=== PATIENT | male | born 1955 | race Caucasian/White ===

== ENCOUNTER 2018-07-25 00:21 | Inpatient (IN) | payer OTHER, SELFPAY ==
[2018-07-25] VITALS (27 sets, daily range): BP systolic 64–140; BP diastolic 30–66; PULSE 90–119; RESP 15–29; TEMP 36.7–38.5; O2SAT 92–97; BMI 41.1; BMI 41.0
--- NOTE | 2018-07-25 00:37 | EKG12_ITS ---
Test Reason : SOB Blood Pressure : / mmHG Vent. Rate : 108 BPM Atrial Rate : 108 BPM P-R Int : 162 ms QRS Dur : 094 ms QT Int : 330 ms P-R-T Axes : 008 055 031 degrees QTc Int : 442 ms Sinus tachycardia Otherwise normal ECG Confirmed by DEXTER MATHEW ([id number]), commissioning editor CARMEN JEROME ([id number] on 07/28/2018 8:34:13 AM Referred By: Guido Vázquez Confirmed By:DEXTER MATHEW
--- NOTE | 2018-07-25 00:37 | RAD_ITS ---
STUDY: X-RAY CHEST REASON FOR EXAM: Male, 62 years old. Shortness of breath TECHNIQUE: PA and lateral COMPARISON: None. FINDINGS: There is a LEFT perihilar mass measuring 7.3 cm. Malignancy cannot be excluded. Lungs otherwise expanded and clear. There is NO pleural effusion or pneumothorax. Normal size heart. Normal mediastinum and hannah. Normal visualized pulmonary arteries. Normal visualized aortic arch and descending thoracic aorta. Normal visualized thoracic spine. Normal visualized ribs, clavicles, and shoulders. There is no demonstrated abnormality of the visualized soft tissue structures of the upper abdomen. RAD/Chest PA and Lateral IMPRESSION: There is a LEFT perihilar mass measuring 7.3 cm. Malignancy cannot be excluded. Lungs otherwise expanded and clear. There is NO pleural effusion or pneumothorax. Normal size heart. Electronically Signed: Dudley Duong MD at 2:15 EDT , Service support ,
--- NOTE | 2018-07-25 00:42 | ED.DCSUM_ITS ---
- ER Visit Summary Date of Service: 07/25/18 Chief Complaint: Cough, shortness of breath, left-sided chest pain History of Present Illness: The patient is a 62 M presents to the emergency department multiple complaints. Patient states that he felt like he had an upper respiratory infection for about 2 and half weeks. He states he had some nasal drainage, scant cough, and some myalgias. He states that he felt better, but over the past few days he is actually is getting worse. He is begun to have a lot of pain in the left side of his chest, especially with laying on it. He feels like he cannot breathe at times. He has had persistent cough without any productive sputum. Patient does have a history of smoking, but is never been diagnosed with COPD. The pain is not exertional. It is only with palpation. He does admit to some chills and sweats. He has not been on any recent antibiotics. He denies any recent travel. He does have history of diabetes, but no known history of coronary vascular disease. Physical Examination: Vital signs reviewed General: Well-nourished, well-developed Head: Normocephalic, atraumatic Eyes: Pupils equal and reactive, extraocular muscles intact Neck, supple, no lymphadenopathy Heart: Regular rate and rhythm Respiratory: No distress, wheezing in all lung vora, focal rhonchi in the left base Abdomen: Soft, nontender, nondistended, no peritoneal signs Back: Nontender Extremities: Nontender, no edema, no cords Skin: Normal color no rash Neuro: Alert and oriented, no focal or lateralizing deficits Test Results: [] Emergency Department Course and Treatment: The patient presents to the emergency department left-sided chest pain, cough, shortness of breath. IV was established. Initially, his blood pressure was on the lower end of normal at 98/60. He maintained maps greater than 65. He was given IV fluids and labs were obtained. The patient does have a leukocytosis. Lactate is also mildly elevated at 2.3. X-ray shows a rounded opacity there was concern for lung abscess versus malignancy. Patient was sent for CT of his chest. This does demonstrate pneumonia, with no evidence of mass or abscess. He was started on broad-spectrum antibiotics. The patient was discussed with the hospitalist and will be admitted. Treatment Plan: [] Disposition: Admission Impression: 1. Community-acquired pneumonia 2. Sepsis This note was generated with [employer] dictation software. It may contain incorrect words, spelling, and punctuation that were not noted in review of the chart prior to signing ED Disposition - Plan for ED Patient: Chief Complaint: Cold Sx Referrals: NOT,DEFINED [NON-STAFF] -
[2018-07-25] MEDS: Ipratropium/Albuterol Sulfate 3 ML AMPUL.NEB INHALATION ×6 (00:51→22:37)
[2018-07-25] MEDS: 0.9% Normal Saline 1,000 ML 1000 ML IV (00:51)
[2018-07-25] MEDS: Acetaminophen 500 MG Tablet 1000 MG PO (00:51)
--- NOTE | 2018-07-25 01:02 | ED.RN ---
no old ekgs
[2018-07-25 01:07] LABS: Absolute Neutrophil Count 14.6 X10^3/uL (2.0-7.7); Basophil# 0.01 X10^3/uL; Basophil% 0.1 % (0-1); Hematocrit 32.9 % (40-54); Hemoglobin 10.1 g/dl (13.0-16.5); Lymphocyte % 11.1 % (19-41); Mean Corp Hgb Conc 30.7 g/gl (32-36); Mean Corpuscular Hgb 25.6 pg (27.0-32.0); Mean Corpuscular Volume 83.3 fL (80-94); Mean Platelet Vol. 9.7 fl (6.2-12.0); Monocyte# 2.15 X10^3/uL; Monocyte% 11.4 % (0-10); Neutrophil # 14.59 X10^3/uL (2.7-7.7); Neutrophil % 77.1 % (47-70); Platelet Count 221 K/mm3 (150-450); RBC Distribution Width CV 15.5 % (11.6-14.6); RBC Distribution Width SD 47.6 fl (35.1-43.9); Red Blood Count 3.95 M/mm3 (4.6-6.2); White Blood Count 18.9 K/mm3 (4.4-11.0)
[2018-07-25 01:29] LABS: POSITIVE COUNT NO; POSITIVE DIFFERENTIAL YES; POSITIVE MORPHOLOGY YES
[2018-07-25 01:30] LABS: Differential Comment SCANNED; Differential Indicated SCAN CRITERIA MET
[2018-07-25 01:33] LABS: ALB/GLOB Ratio 0.9 RATIO (0.9-2.4); AST(SGOT) 11 U/L (15-37); Alanine Aminotransfer ALT/SGPT 19 U/L (16-61); Albumin, Serum 3.5 g/dL (3.2-5.0); Alkaline Phosphatase 62 U/L (45-117); Anion Gap 9 (5-15); BUN 27 mg/dL (7-18); BUN/Creat Ratio 18.8 RATIO (10-20); Calcium,Total 8.3 mg/dL (8.5-10.1); Chloride 99 mmol/L (98-107); Creatinine, Serum 1.44 mg/dL (0.70-1.30); EST Glomerular Filtration Rate 53 mL/min (>60); Est Glom Filt Rate - Afr Amer 64 mL/min (>60); Globulin 3.8 g/dL (2.2-4.2); Glucose 114 mg/dL (74-106); Potassium 3.8 mmol/L (3.5-5.1); Protein, Total 7.3 g/dL (6.4-8.2); Sodium Level 132 mmol/L (136-145)
[2018-07-25 01:36] LABS: Lactic Acid 2.3 mmol/L (0.4-2.0)
--- NOTE | 2018-07-25 01:37 | CT_ITS ---
STUDY: CT CHEST WITH CONTRAST REASON FOR EXAM: Male, 62 years old. COUGH,SOB,LT SIDED CHEST PAIN X COUPLE DAYS,? ABN XRAY,ELEVATED WBC HX:DIABETES,HTN RADIATION DOSAGE (If Supplied By Facility): CTDIvol = ( 16.73 ) mGy, DLP = ( 761.88 ) mGycm TECHNIQUE: Transaxial imaging was performed following intravenous administration of 100ML ml of Isovue 300 contrast material. Individualized dose optimization techniques were used for this CT. COMPARISON: None. FINDINGS: There is ill-defined round opacity in the left lung upper lobe and lingula most likely represent pneumonia. There is no demonstrated pleural abnormality. Normal heart and pericardium. Normal mediastinum. Normal hilar regions. Normal enhanced pulmonary arteries. Normal aorta arch and descending thoracic aorta. Normal osseous structures. There is a left renal cyst measures [address]/Chest WITH Contrast IMPRESSION: Left upper lobe and lingula pneumonia. Follow-up to ensure resolution is recommended. Electronically Signed: Jessica Brown MD at 2:50 EDT Tel , Service support ,
--- NOTE | 2018-07-25 01:41 | ED.RN ---
lab called with critical lab results. Lactic acid 2.3. Dr. Arreguin made aware. no new orders at this time
[2018-07-25] MEDS: 0.9% Normal Saline 1,000 ML 999 ML IV ×3 (02:24→11:42)
--- NOTE | 2018-07-25 03:06 | PCM.HP.STD ---
Problem List (1) Severe sepsis Status: Acute (2) CAP (community acquired pneumonia) Status: Acute Qualifiers: Laterality: left (3) Acute respiratory failure with hypoxia Status: Acute (4) LIZA (acute kidney injury) Status: Acute (5) Morbid obesity Status: Chronic (6) HTN (hypertension) Status: Chronic Qualifiers: Hypertension type: essential hypertension Qualified Code(s): I10 - Essential (primary) hypertension (7) HLD (hyperlipidemia) Status: Chronic Qualifiers: Hyperlipidemia type: unspecified Qualified Code(s): E78.5 - Hyperlipidemia, unspecified (8) GERD (gastroesophageal reflux disease) Status: Chronic Qualifiers: Esophagitis presence: esophagitis presence not specified Qualified Code(s): K21.9 - Gastro-esophageal reflux disease without esophagitis (9) Diabetes mellitus, type II Status: Chronic Qualifiers: Diabetes mellitus petroleum terminal plant operator insulin use: without petroleum terminal plant operator use Diabetes mellitus complication status: with unspecified complications Qualified Code(s): E11.8 - Type 2 diabetes mellitus with unspecified complications History of Present Illness Date of Admission: 07/25/18 Chief Complaint: URI sxs, cough, pleuritic chest pain The patient is a 62 y/o M w/ PMHx: Morbid Obesity, Tobacco use, HTN, HLD, GERD who presents to the [facility] ED on 07/25/18 with URI symptoms x 2.5 weeks which initially improved but then worsened over the last 2-3 days w/ onset fevers, chills, productive cough and notable L sided discomfort, worse with palpitation to the region and with deep respiratory efforts. In the ED work-up included T 98, heart rate 119, BP 91/56, respiratory rate 20, 99% on room air--> heart rate 103, BP 85/64, respiratory rate 29, 90% on room air, CBC with WBC 18.9, hemoglobin 10.1, platelet 221 with left shift, CMP with sodium 132, BUN/creatinine 27/1.44, glucose 114, lactic acid 2.3, troponin < 0.015, chest x-ray with left perihilar mass measuring 7.3 cm, CT chest follow-up with left upper lobe and lingula pneumonia. In the ED patient administered normal saline, DuoNeb, Tylenol, Rocephin and azithromycin. Past Medical History Past Medical History (Chronic Problems): Chronic Problems Morbid obesity (Chronic) HTN (hypertension) (Chronic) HLD (hyperlipidemia) (Chronic) GERD (gastroesophageal reflux disease) (Chronic) Diabetes mellitus, type II (Chronic) Allergies No Known Allergies Allergy (Verified 07/25/18 00:25) Home Medications: Ambulatory Orders Medication Instructions Recorded Lansoprazole [Prevacid] 1 tab PO DAILY 07/25/18 Lisinopril [Zestril] 1 tab PO DAILY 07/25/18 Simvastatin 40 mg PO DAILY 07/25/18 Surgical History: - - Right arm surgery on the elbow. Psychiatric History: No pertinent psych hx Lives: Spouse/ Significant Other Smoking Status: Current every day smoker - Notes approximately 2 cigars daily. Tobacco Use: Cigars Alcohol: None Drugs: None - *Family History Maternal History Items: Hypertension Paternal History Items: Heart Disease - Father with history of heart disease, [place]. Review of Systems Constitutional: Reports: Anorexia, Chills, Fever, Malaise, Weakness, Fatigue. Denies: Weight Change HEENT: Denies: Head Aches, Sinus Congestion, Sinus Drainage Cardiovascular: Reports: Chest Pain. Denies: Palpitations Respiratory: Reports: Cough, Pleuritic Pain, Shortness of Breath, Shortness of breath at rest, Shortness of breath upon exertion, Sputum production Gastrointestinal: Denies: Abdominal Pain, Nausea, Vomiting Genitourinary: Denies: Dysuria Musculoskeletal: Denies: Joint Pain, Joint Tenderness Skin: Denies: Rash, Wounds Neurological: Denies: Numbness, Tingling, Focal weakness Psychiatric: Denies: Anxiety, Depression, Homicidal Ideations, Suicidal Ideations Hematologic/ Lymphatic: Reports: Anemia. Denies: Easy Bruising, Easy Bleeding VTE Information - Inpt Only VTE Present on Admission: No VTE Mechan Device Prophylaxis: SCD's VTE Pharm Prophylaxis ordered?: Yes Patient Problems: Active and Suspected Problems Severe sepsis (Acute) CAP (community acquired pneumonia) (Acute) Acute respiratory failure with hypoxia (Acute) LIZA (acute kidney injury) (Acute) Subjective: Seated upright in the ED bed, notes feeling mildly improved since initial presentation but still increased work of breathing and accessory muscle usage. Objective: Physical Examination: General: awake, alert, oriented x 3 and cooperative, seated upright in the ED bed, increased work of breathing, accessory muscle usage, conversational dyspnea although improved since initial ED presentation. Skin: normal color, turgor, no icterus, cyanosis. HEENT: AT/NC, EOMI, PERRLA, dry MM, no carotid bruits or JVD noted. Lungs: Diminished BS, > BL bases, coarse, harsh cough, moist, increased work of breathing, accessory muscle usage, conversation dyspnea, no wheezing. Heart: Tachycardic with regular rhythm; no gallop, rub audible. Abdomen: soft, morbid obese, NTTP, ND, normal BS, no HSM; however, habitus makes examination difficult. Extremities: no cyanosis, clubbing, mild BL ankle edema. Neurological: patient awake, alert, oriented x 3; cognitive function intact; pupils equally reactive to light and accomodation; cranial nerves II-XII grossly normal, moving all 4 extremities, no focal deficits, strength severely globally decreased secondary to acute presentation. Psychiatric: affect appears fatigued, no acute evidence of depressive or anxiety feelings. - Physical Exam Vital Signs Temp Pulse Resp BP Pulse Ox 98.0 F 103 H 29 H 85/64 L 92 07/25/18 00:23 07/25/18 02:27 07/25/18 02:27 07/25/18 02:27 07/25/18 02:27 Oxygen Delivery Method Room Air Weight: 295 lb 3.183 oz Body Mass Index (BMI) 41.1 Laboratory Tests Past 24 Hrs 07/25/18 07/25/18 07/25/18 00:55 00:55 00:55 WBC 18.9 H RBC 3.95 L Hgb 10.1 L Hct 32.9 L MCV 83.3 MCH 25.6 L MCHC 30.7 L RDW 15.5 H RDW Differential 47.6 H Plt Count 221 MPV 9.7 Immature Gran % (Auto) 0.300 Neut % (Auto) 77.1 H Lymph % (Auto) 11.1 L [place] % (Auto) 11.4 H Eos % (Auto) 0.0 Baso % (Auto) 0.1 Absolute Neuts (auto) 14.6 H Absolute Lymphs (auto) 2.10 Total Counted Not Reportable Differential Comment SCANNED Sodium 132 L Potassium 3.8 Chloride 99 Carbon Dioxide 24.0 Anion Gap 9 BUN 27 H Creatinine 1.44 H Estim Creat Clear Calc 58.10 Est GFR (MDRD) Af Amer 64 Est GFR (MDRD) Non-Af 53 L BUN/Creatinine Ratio 18.8 Glucose 114 H Lactic Acid 2.3 H Calcium 8.3 L Total Bilirubin 0.60 AST 11 L ALT 19 Alkaline Phosphatase 62 Troponin I < 0.015 Total Protein 7.3 Albumin 3.5 Globulin 3.8 Albumin/Globulin Ratio 0.9 Assessment/Plan All Active Problems Severe sepsis (Acute) CAP (community acquired pneumonia) (Acute) Acute respiratory failure with hypoxia (Acute) LIZA (acute kidney injury) (Acute) The patient is a 62 y/o M w/ PMHx: Morbid Obesity, Tobacco use, HTN, HLD, GERD who presents to the [facility] ED on 07/25/18 with URI symptoms x 2.5 weeks which initially improved but then worsened over the last 2-3 days w/ onset fevers, chills, productive cough and notable L sided discomfort, worse with palpitation to the region and with deep respiratory efforts. (1) Acute Severe Sepsis secondary to Acute Hypoxic Respiratory Failure secondary to CAP Pneumonia: Increased work of breathing, accessory muscle usage notable in the ED, ABG requested. ED work-up included T 98, heart rate 119, BP 91/56, respiratory rate 20, 99% on room air--> heart rate 103, BP 85/64, respiratory rate 29, 90% on room air, CBC with WBC 18.9, hemoglobin 10.1, platelet 221 with left shift, CMP with sodium 132, BUN/creatinine 27/1.44, glucose 114, lactic acid 2.3, troponin < 0.015, chest x-ray with left perihilar mass measuring 7.3 cm, CT chest follow-up with left upper lobe and lingula pneumonia. Will admit to PCU, discussed w/ ED and given appearance will obtain ABG, may necessitate BIPAP placement otherwise will maintain on oxygen with wean as tolerated to room air, continue ATC duonebs, PRN albuterol, maintained on IV Rocephin and Azithromycin, HOB, IS parameters w/ pending sputum cultures and urine antigens as well as respiratory viral panel. Bld cx x 2 obtained in the ED. (2) Hyponatremia, Mild, Suspected Acute: Secondary to #1, likely hypovolemia, continue hydration, repeat BMP in AM. (3) Suspected Acute kidney injury: Suspected LZIA, admission BUN/Cr 27/1.44, no prior baseline creatinine noted, felt likely secondary to #1, #2, will continue to hydrate, hold nephrotoxic medications and repeat chemistry in AM. If no improvement would plan FeNa assessment. (4) Diabetes mellitus type II: Not on regimen, obtain HgbA1c, nutrition consultation for education and teaching, ADA diet, accu checks w/ ISS. (5) Normocytic Anemia, Unclear if Chronic, Acute: Admission Hgb 10.2, MCV 83.3, will obtain Fe panel, ferritin, folic acid, vitamin B12 level. (6) Hypertension: Hold home regimen given hypotensive presentation. (7) Hyperlipidemia: Continue home statin regimen. (8) Morbid Obesity: Weight loss and lifestyle changes encouraged, nutrition consulted. (9) Tobacco Abuse: Encouraged cessation, inpatient consultation per RT, NR if desired. (10) GERD: PPI. (11) DVT prophylaxis: SCD, heparin. Code Visit Inpatient E&M: 56470 Init Hosp L3
[2018-07-25] MEDS: Ceftriaxone 1 GM/50 ML BAG IV ×2 (03:09→22:34)
--- NOTE | 2018-07-25 03:13 | HP.PCM_ITS ---
Problem List (1) Severe sepsis Status: Acute (2) CAP (community acquired pneumonia) Status: Acute Qualifiers: Laterality: left (3) Acute respiratory failure with hypoxia Status: Acute (4) LIZA (acute kidney injury) Status: Acute (5) Morbid obesity Status: Chronic (6) HTN (hypertension) Status: Chronic Qualifiers: Hypertension type: essential hypertension Qualified Code(s): I10 - Essential (primary) hypertension (7) HLD (hyperlipidemia) Status: Chronic Qualifiers: Hyperlipidemia type: unspecified Qualified Code(s): E78.5 - Hyperlipidemia, unspecified (8) GERD (gastroesophageal reflux disease) Status: Chronic Qualifiers: Esophagitis presence: esophagitis presence not specified Qualified Code(s): K21.9 - Gastro-esophageal reflux disease without esophagitis (9) Diabetes mellitus, type II Status: Chronic Qualifiers: 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 terminal computer operator use Diabetes mellitus complication status: with unspecified complications Qualified Code(s): E11.8 - Type 2 diabetes mellitus with unspecified complications History of Present Illness Date of Admission: 07/25/18 Chief Complaint: URI sxs, cough, pleuritic chest pain The patient is a 62 y/o M w/ PMHx: Morbid Obesity, Tobacco use, HTN, HLD, GERD who presents to the [facility] ED on 07/25/18 with URI symptoms x 2.5 weeks which initially improved but then worsened over the last 2-3 days w/ onset fevers, chills, productive cough and notable L sided discomfort, worse with palpitation to the region and with deep respiratory efforts. In the ED work-up included T 98, heart rate 119, BP 91/56, respiratory rate 20, 99% on room air--> heart rate 103, BP 85/64, respiratory rate 29, 90% on room air, CBC with WBC 18.9, hemoglobin 10.1, platelet 221 with left shift, CMP with sodium 132, BUN/creatinine 27/1.44, glucose 114, lactic acid 2.3, troponin < 0.015, chest x- ray with left perihilar mass measuring 7.3 cm, CT chest follow-up with left upper lobe and lingula pneumonia. In the ED patient administered normal saline, DuoNeb, Tylenol, Rocephin and azithromycin. Past Medical History Past Medical History (Chronic Problems): Chronic Problems Morbid obesity (Chronic) HTN (hypertension) (Chronic) HLD (hyperlipidemia) (Chronic) GERD (gastroesophageal reflux disease) (Chronic) Diabetes mellitus, type II (Chronic) Allergies No Known Allergies Allergy (Verified 07/25/18 00:25) Home Medications: Ambulatory Orders Medication Instructions Recorded Lansoprazole [Prevacid] 1 tab PO DAILY 07/25/18 Lisinopril [Zestril] 1 tab PO DAILY 07/25/18 Simvastatin 40 mg PO DAILY 07/25/18 Surgical History: - - Right arm surgery on the elbow. Psychiatric History: No pertinent psych hx Lives: Spouse/ Significant Other Smoking Status: Current every day smoker - Notes approximately 2 cigars daily. Tobacco Use: Cigars Alcohol: None Drugs: None - *Family History Maternal History Items: Hypertension Paternal History Items: Heart Disease - Father with history of heart disease, [place]. Review of Systems Constitutional: Reports: Anorexia, Chills, Fever, Malaise, Weakness, Fatigue. Denies: Weight Change HEENT: Denies: Head Aches, Sinus Congestion, Sinus Drainage Cardiovascular: Reports: Chest Pain. Denies: Palpitations Respiratory: Reports: Cough, Pleuritic Pain, Shortness of Breath, Shortness of breath at rest, Shortness of breath upon exertion, Sputum production Gastrointestinal: Denies: Abdominal Pain, Nausea, Vomiting Genitourinary: Denies: Dysuria Musculoskeletal: Denies: Joint Pain, Joint Tenderness Skin: Denies: Rash, Wounds Neurological: Denies: Numbness, Tingling, Focal weakness Psychiatric: Denies: Anxiety, Depression, Homicidal Ideations, Suicidal Ideations Hematologic/ Lymphatic: Reports: Anemia. Denies: Easy Bruising, Easy Bleeding VTE Information - Inpt Only VTE Present on Admission: No VTE Mechan Device Prophylaxis: SCD's VTE Pharm Prophylaxis ordered?: Yes Patient Problems: Active and Suspected Problems Severe sepsis (Acute) CAP (community acquired pneumonia) (Acute) Acute respiratory failure with hypoxia (Acute) LIZA (acute kidney injury) (Acute) Subjective: Seated upright in the ED bed, notes feeling mildly improved since initial presentation but still increased work of breathing and accessory muscle usage. Objective: Physical Examination: General: awake, alert, oriented x 3 and cooperative, seated upright in the ED bed, increased work of breathing, accessory muscle usage, conversational dyspnea although improved since initial ED presentation. Skin: normal color, turgor, no icterus, cyanosis. HEENT: AT/NC, EOMI, PERRLA, dry MM, no carotid bruits or JVD noted. Lungs: Diminished BS, > BL bases, coarse, harsh cough, moist, increased work of breathing, accessory muscle usage, conversation dyspnea, no wheezing. Heart: Tachycardic with regular rhythm; no gallop, rub audible. Abdomen: soft, morbid obese, NTTP, ND, normal BS, no HSM; however, habitus makes examination difficult. Extremities: no cyanosis, clubbing, mild BL ankle edema. Neurological: patient awake, alert, oriented x 3; cognitive function intact; pupils equally reactive to light and accomodation; cranial nerves II-XII grossly normal, moving all 4 extremities, no focal deficits, strength severely globally decreased secondary to acute presentation. Psychiatric: affect appears fatigued, no acute evidence of depressive or anxiety feelings. - Physical Exam Vital Signs Temp Pulse Resp BP Pulse Ox 98.0 F 103 H 29 H 85/64 L 92 07/25/18 00:23 07/25/18 02:27 07/25/18 02:27 07/25/18 02:27 07/25/18 02:27 Oxygen Delivery Method Room Air Weight: 295 lb 3.183 oz Body Mass Index (BMI) 41.1 Laboratory Tests Past 24 Hrs 07/25/18 07/25/18 07/25/18 00:55 00:55 00:55 WBC 18.9 H RBC 3.95 L Hgb 10.1 L Hct 32.9 L MCV 83.3 MCH 25.6 L MCHC 30.7 L RDW 15.5 H RDW Differential 47.6 H Plt Count 221 MPV 9.7 Immature Gran % (Auto) 0.300 Neut % (Auto) 77.1 H Lymph % (Auto) 11.1 L [place] % (Auto) 11.4 H Eos % (Auto) 0.0 Baso % (Auto) 0.1 Absolute Neuts (auto) 14.6 H Absolute Lymphs (auto) 2.10 Total Counted Not Reportable Differential Comment SCANNED Sodium 132 L Potassium 3.8 Chloride 99 Carbon Dioxide 24.0 Anion Gap 9 BUN 27 H Creatinine 1.44 H Estim Creat Clear Calc 58.10 Est GFR (MDRD) Af Amer 64 Est GFR (MDRD) Non-Af 53 L BUN/Creatinine Ratio 18.8 Glucose 114 H Lactic Acid 2.3 H Calcium 8.3 L Total Bilirubin 0.60 AST 11 L ALT 19 Alkaline Phosphatase 62 Troponin I < 0.015 Total Protein 7.3 Albumin 3.5 Globulin 3.8 Albumin/Globulin Ratio 0.9 Assessment/Plan All Active Problems Severe sepsis (Acute) CAP (community acquired pneumonia) (Acute) Acute respiratory failure with hypoxia (Acute) LIZA (acute kidney injury) (Acute) The patient is a 62 y/o M w/ PMHx: Morbid Obesity, Tobacco use, HTN, HLD, GERD who presents to the [facility] ED on 07/25/18 with URI symptoms x 2.5 weeks which initially improved but then worsened over the last 2-3 days w/ onset fevers, chills, productive cough and notable L sided discomfort, worse with palpitation to the region and with deep respiratory efforts. (1) Acute Severe Sepsis secondary to Acute Hypoxic Respiratory Failure secondary to CAP Pneumonia: Increased work of breathing, accessory muscle usage notable in the ED, ABG requested. ED work-up included T 98, heart rate 119, BP 91/56, respiratory rate 20, 99% on room air--> heart rate 103, BP 85/64, respiratory rate 29, 90% on room air, CBC with WBC 18.9, hemoglobin 10.1, platelet 221 with left shift, CMP with sodium 132, BUN/creatinine 27/1.44, glucose 114, lactic acid 2.3, troponin < 0.015, chest x-ray with left perihilar mass measuring 7.3 cm, CT chest follow-up with left upper lobe and lingula pneumonia. Will admit to PCU, discussed w/ ED and given appearance will obtain ABG, may necessitate BIPAP placement otherwise will maintain on oxygen with wean as tolerated to room air, continue ATC duonebs, PRN albuterol, maintained on IV Rocephin and Azithromycin, HOB, IS parameters w/ pending sputum cultures and urine antigens as well as respiratory viral panel. Bld cx x 2 obtained in the ED. (2) Hyponatremia, Mild, Suspected Acute: Secondary to #1, likely hypovolemia, continue hydration, repeat BMP in AM. (3) Suspected Acute kidney injury: Suspected LIZA, admission BUN/Cr 27/1.44, no prior baseline creatinine noted, felt likely secondary to #1, #2, will continue to hydrate, hold nephrotoxic medications and repeat chemistry in AM. If no improvement would plan FeNa assessment. (4) Diabetes mellitus type II: Not on regimen, obtain HgbA1c, nutrition consultation for education and teaching, ADA diet, accu checks w/ ISS. (5) Normocytic Anemia, Unclear if Chronic, Acute: Admission Hgb 10.2, MCV 83.3, will obtain Fe panel, ferritin, folic acid, vitamin B12 level. (6) Hypertension: Hold home regimen given hypotensive presentation. (7) Hyperlipidemia: Continue home statin regimen. (8) Morbid Obesity: Weight loss and lifestyle changes encouraged, nutrition consulted. (9) Tobacco Abuse: Encouraged cessation, inpatient consultation per RT, NR if desired. (10) GERD: PPI. (11) DVT prophylaxis: SCD, heparin. Code Visit Inpatient E&M: 17657 Init Hosp L3
[2018-07-25] MEDS: Ketorolac 15 MG/ML Vial IV (04:02)
[2018-07-25 04:16] LABS: Allen Test POS; Base Excess -5 mmol/L (-2 to +2); Bicarbonate 20.8 mmol/L (22-26); Blood Gas Specimen Type ART; O2 Delivery Device Room Air; PO2 51 mmHG (75-100); SITE L Radial; SO2 85 % (95-99); Time Given 408; Total Carbon Dioxide 22 mmol/L; pCO2 36.1 mmHg (35-45); pH 7.37 (7.35-7.45)
[2018-07-25 05:01] LABS: Reflex Lactate? Y
[2018-07-25 05:10] LABS: Ferritin 22 ng/mL (26-388); Magnesium 0.8 mg/dL (1.6-2.6)
[2018-07-25 06:06] LABS: Lactic Acid 2.5 mmol/L (0.4-2.0)
[2018-07-25 06:55] LABS: Bedside Glucose 106 mg/dL (70-110)
[2018-07-25] MEDS: guaiFENesin 1,200 MG Tablet 1200 MG PO ×2 (09:32→22:26)
[2018-07-25] MEDS: Heparin Injection (Vial) 5,000 UNIT/ML VIAL 5000 UNIT SC ×2 (09:32→22:27)
[2018-07-25] MEDS: Pantoprazole Sodium 20 MG Tablet PO ×2 (09:32→22:27)
[2018-07-25] MEDS: 0.9% Normal Saline 1,000 ML 125 ML IV ×2 (09:32→16:54)
[2018-07-25] MEDS: Acetaminophen 325 MG Tablet 650 MG PO (09:47)
--- NOTE | 2018-07-25 10:31 | CASEMGMT ---
SW met with patient and his . Introduced self and role at [facility]. Patient and his live in [place], [place], but were in [place] visiting family. Patient is independent and manages all his own needs. He does have insurance, but he and his forget the name and he forgot his card at home. His primary care doctor is Dr Harrell. He is not on home O2 normally. He denies any home going needs at this time. Plan: home at d/c. Luisa BEDOYA
[2018-07-25 11:56] LABS: Bedside Glucose 119 mg/dL (70-110)
[2018-07-25] MEDS: Glucerna Shake 120 ML LIQUID PO (12:58)
--- NOTE | 2018-07-25 13:41 | PCM.PROGNOTE ---
Patient Problems: Active and Suspected Problems Severe sepsis (Acute) CAP (community acquired pneumonia) (Acute) Acute respiratory failure with hypoxia (Acute) LIZA (acute kidney injury) (Acute) Subjective: Patient seen and examined. Complains of intermittent subjective fever with diaphoresis. Denies dizziness, lightheadedness. States he is beginning to produce some sputum. Denies chest pain. Denies significant shortness of breath. - Physical Exam General: Alert, Oriented x3, Cooperative HEENT: Atraumatic, PERRLA, EOMI, Normocephalic Neck: Supple, No JVD, Negative Carotid Bruits Lungs: Diminished, Rhonchi, - - Course Cardiovascular: Regular Rhythm, Normal S1, Normal S2, No murmurs, Tachycardic Abdomen: Bowel Sounds Present, Soft, Non Tender, Non-Distended, Obese Extremities: No clubbing, No cyanosis, No edema Skin: No rashes, No breakdown Musculoskeletal: No Tenderness to Palpation of Joints or Extremities Neurological: Cranial nerves II-XII grossly intact, Neuro grossly intact Psych/Mental Status: Normal Affect, Appropriate Vital Signs Temp Pulse Resp BP Pulse Ox 99.8 F H 104 H 16 107/56 L 97 07/25/18 12:20 07/25/18 12:59 07/25/18 12:20 07/25/18 12:59 07/25/18 12:20 Oxygen Flow Rate (L/min) 2 Oxygen Delivery Method Nasal Cannula Weight: 294 lb 6 oz Body Mass Index (BMI) 41.0 Intake and Output for Last 24 Hours 07/23/18 07/24/18 07/25/18 23:59 23:59 23:59 Intake Total 4023 / 4023 Balance 4023 / 4023 Microbiology Past 72 Hours 07/25/18 07:35 Streptococcus pneumoniae Antigen (M - Final Urine, Clean Catch 07/25/18 07:35 Legionella Antigen - Final Urine, Clean Catch Laboratory Tests Past 24 Hrs 07/25/18 07/25/18 07/25/18 00:55 00:55 00:55 WBC 18.9 H RBC 3.95 L Hgb 10.1 L Hct 32.9 L MCV 83.3 MCH 25.6 L MCHC 30.7 L RDW 15.5 H RDW Differential 47.6 H Plt Count 221 MPV 9.7 Immature Gran % (Auto) 0.300 Neut % (Auto) 77.1 H Lymph % (Auto) 11.1 L [place] % (Auto) 11.4 H Eos % (Auto) 0.0 Baso % (Auto) 0.1 Absolute Neuts (auto) 14.6 H Absolute Lymphs (auto) 2.10 Total Counted Not Reportable Differential Comment SCANNED Specimen Type Sample Site pH Bicarbonate Actual POC Total CO2 Base Excess O2 Saturation ABG pCO2 ABG pO2 [place] Test O2 Delivery Device Blood Gas Notified Whom Blood Gas Notified Time Sodium 132 L Potassium 3.8 Chloride 99 Carbon Dioxide 24.0 Anion Gap 9 BUN 27 H Creatinine 1.44 H Estim Creat Clear Calc 58.10 Est GFR (MDRD) Af Amer 64 Est GFR (MDRD) Non-Af 53 L BUN/Creatinine Ratio 18.8 Glucose 114 H Hemoglobin A1c Lactic Acid 2.3 H Calcium 8.3 L Magnesium Ferritin Total Bilirubin 0.60 AST 11 L ALT 19 Alkaline Phosphatase 62 Troponin I < 0.015 Total Protein 7.3 Albumin 3.5 Globulin 3.8 Albumin/Globulin Ratio 0.9 Vitamin B12 Folate 07/25/18 07/25/18 07/25/18 00:55 00:55 00:55 WBC RBC Hgb Hct MCV MCH MCHC RDW RDW Differential Plt Count MPV Immature Gran % (Auto) Neut % (Auto) Lymph % (Auto) [place] % (Auto) Eos % (Auto) Baso % (Auto) Absolute Neuts (auto) Absolute Lymphs (auto) Total Counted Differential Comment Specimen Type Sample Site pH Bicarbonate Actual POC Total CO2 Base Excess O2 Saturation ABG pCO2 ABG pO2 [place] Test O2 Delivery Device Blood Gas Notified Whom Blood Gas Notified Time Sodium Potassium Chloride Carbon Dioxide Anion Gap BUN Creatinine Estim Creat Clear Calc Est GFR (MDRD) Af Amer Est GFR (MDRD) Non-Af BUN/Creatinine Ratio Glucose Hemoglobin A1c 6.0 Lactic Acid Calcium Magnesium 0.8 L* Ferritin 22 L Total Bilirubin AST ALT Alkaline Phosphatase Troponin I Total Protein Albumin Globulin Albumin/Globulin Ratio Vitamin B12 Pending Folate 19.40 07/25/18 07/25/18 07/25/18 04:09 05:10 13:20 WBC RBC Hgb Hct MCV MCH MCHC RDW RDW Differential Plt Count MPV Immature Gran % (Auto) Neut % (Auto) Lymph % (Auto) [place] % (Auto) Eos % (Auto) Baso % (Auto) Absolute Neuts (auto) Absolute Lymphs (auto) Total Counted Differential Comment Specimen Type ART Sample Site L Radial pH 7.37 Bicarbonate Actual 20.8 L POC Total CO2 22 Base Excess -5 L O2 Saturation 85 L ABG pCO2 36.1 ABG pO2 51 L [place] Test POS O2 Delivery Device Room Air Blood Gas Notified Whom [facility] Blood Gas Notified Time 408 Sodium Potassium Chloride Carbon Dioxide Anion Gap BUN Creatinine Estim Creat Clear Calc Est GFR (MDRD) Af Amer Est GFR (MDRD) Non-Af BUN/Creatinine Ratio Glucose Hemoglobin A1c Lactic Acid 2.5 H Pending Calcium Magnesium Ferritin Total Bilirubin AST ALT Alkaline Phosphatase Troponin I Total Protein Albumin Globulin Albumin/Globulin Ratio Vitamin B12 Folate POC Glucose 07/25/18 07/25/18 11:29 06:33 POC Glucose 119 H 106 Medical Necessity - Tobacco Use Smoking Status: Current some day smoker Tobacco Use: Cigars Assessment/Plan All Active Problems Severe sepsis (Acute) CAP (community acquired pneumonia) (Acute) Acute respiratory failure with hypoxia (Acute) LIZA (acute kidney injury) (Acute) 1. Acute severe sepsis secondary to community acquired pneumonia with associated acute hypoxic respiratory failure-CT of chest showed left upper lobe and lingula pneumonia. Albuterol and DuoNeb aerosols. Wean oxygen as tolerated to maintain O2 at or above 90%. Continue IV Rocephin and azithromycin. Urine for strep and Legionella negative. Respiratory panel pending. Blood cultures pending. Obtain sputum culture. 2. Acute kidney injury-secondary to #1. Trend BMP. 3. Hypomagnesia-replaced IV. Repeat in a.m. 4. Type 2 diabetes mellitus-hold home metformin regimen. Accu-Cheks before meals at bedtime with sliding scale insulin. 5. Normocytic anemia-stable. B12 level pending. Ferritin low, 22. 6. Hypertension-hold home BP regimen given hypotension secondary to acute sepsis. Continue to monitor. 7. Hyperlipidemia-continue statin. 8. Morbid obesity-encourage diet lifestyle modifications. 9. GERD-continue PPI. 10. Tobacco dependence-encourage smoking cessation. DVT prophylaxis-heparin subcu. This patient was seen by JOSELINE Medley under the supervision of Dr. Vázquez.
[2018-07-25 14:15] LABS: Lactic Acid 3.1 mmol/L (0.4-2.0)
[2018-07-25 17:06] LABS: Bedside Glucose 124 mg/dL (70-110)
[2018-07-25 17:29] LABS: Reflex Lactate? Y
[2018-07-25 18:31] LABS: Lactic Acid 2.3 mmol/L (0.4-2.0)
[2018-07-25] MEDS: Atorvastatin Calcium 20 MG Tablet PO (22:27)
[2018-07-25 23:15] LABS: Bedside Glucose 105 mg/dL (70-110)
[2018-07-26] VITALS (11 sets, daily range): BP systolic 97–105; BP diastolic 57–60; PULSE 58–83; RESP 15–20; TEMP 36.2–37.2; O2SAT 92–99
[2018-07-26] MEDS: Acetaminophen 325 MG Tablet 650 MG PO
[2018-07-26] MEDS: Ipratropium/Albuterol Sulfate 3 ML AMPUL.NEB INHALATION ×3 (02:33→10:48)
[2018-07-26] MEDS: 0.9% Normal Saline 1,000 ML 125 ML IV ×2 (02:47→10:32)
[2018-07-26 06:12] LABS: Absolute Lymphocyte Count 1.88 X10^3/ul (0.83-4.51); Absolute Neutrophil Count 10.5 X10^3/uL (2.0-7.7); Basophil# 0.02 X10^3/uL; Basophil% 0.1 % (0-1); Eosinophil# 0.02 X10^3/uL; Eosinophils% 0.1 % (0-5); Hematocrit 28.2 % (40-54); Hemoglobin 8.6 g/dl (13.0-16.5); Lymphocyte # 1.88 X10^3/ul (4.0); Lymphocyte % 13.4 % (19-41); Mean Corp Hgb Conc 30.5 g/gl (32-36); Mean Corpuscular Hgb 25.5 pg (27.0-32.0); Mean Corpuscular Volume 83.7 fL (80-94); Mean Platelet Vol. 9.7 fl (6.2-12.0); Monocyte# 1.62 X10^3/uL; Monocyte% 11.5 % (0-10); Neutrophil # 10.47 X10^3/uL (2.7-7.7); Neutrophil % 74.5 % (47-70); Platelet Count 251 K/mm3 (150-450); RBC Distribution Width CV 15.7 % (11.6-14.6); RBC Distribution Width SD 46.9 fl (35.1-43.9); Red Blood Count 3.37 M/mm3 (4.6-6.2); White Blood Count 14.1 K/mm3 (4.4-11.0)
[2018-07-26 06:15] LABS: Differential Indicated SCAN CRITERIA MET; POSITIVE COUNT NO; POSITIVE DIFFERENTIAL YES; POSITIVE MORPHOLOGY NO
[2018-07-26 06:24] LABS: Anion Gap 8 (5-15); BUN 21 mg/dL (7-18); BUN/Creat Ratio 22.2 RATIO (10-20); Calcium,Total 8.3 mg/dL (8.5-10.1); Chloride 104 mmol/L (98-107); Creatinine, Serum 0.94 mg/dL (0.70-1.30); EST Glomerular Filtration Rate 86 mL/min (>60); Est Glom Filt Rate - Afr Amer 104 mL/min (>60); Estimated Creatinine Clearance 89.01 ml/min; Glucose 116 mg/dL (74-106); Magnesium 2.3 mg/dL (1.6-2.6); Potassium 4.2 mmol/L (3.5-5.1); Sodium Level 137 mmol/L (136-145)
[2018-07-26 06:35] LABS: Differential Comment SCANNED
[2018-07-26 07:16] LABS: Bedside Glucose 119 mg/dL (70-110)
[2018-07-26] MEDS: Heparin Injection (Vial) 5,000 UNIT/ML VIAL 5000 UNIT SC (08:02)
[2018-07-26] MEDS: guaiFENesin 1,200 MG Tablet 1200 MG PO (08:02)
[2018-07-26] MEDS: Pantoprazole Sodium 20 MG Tablet PO (08:02)
--- NOTE | 2018-07-26 10:44 | DCINST_ITS ---
- Discharge Diagnoses Current Active Problems: Current Active and Chronic Problems Severe sepsis (Acute) CAP (community acquired pneumonia) (Acute) Acute respiratory failure with hypoxia (Acute) LIZA (acute kidney injury) (Acute) Morbid obesity (Chronic) HTN (hypertension) (Chronic) HLD (hyperlipidemia) (Chronic) GERD (gastroesophageal reflux disease) (Chronic) Diabetes mellitus, type II (Chronic) You will use the following diet at home:: No restrictions Discharge Activity: Return to Normal Activity Call your doctor if you observe: Shortness of breath, Dizziness, Fainting spells, Chest pain Allergies/Adverse Reactions: Allergies No Known Allergies Allergy (Verified 07/25/18 00:25) Medications to take at Discharge Lansoprazole [Prevacid] 1 tab PO DAILY 07/25/18 Lisinopril [Zestril] 1 tab PO DAILY 07/25/18 Metformin HCl 07/25/18 Simvastatin 40 mg PO DAILY 07/25/18 Amox/Clavulanate Tablet [Augmentin Tablet] 875 mg PO Q12H #20 tab 07/26/18 Azithromycin 500 mg PO DAILY #5 tab 07/26/18 The following prescriptions were given: Amox/Clavulanate Tablet [Augmentin Tablet] 875 mg PO Q12H #20 tab Azithromycin 500 mg PO DAILY #5 tab Primary Care Physician: NOT,DEFINED [NON-STAFF] - Please follow up with your Primary Care Physician in: 1 Week Test Results: Test results from this visit will be discussed in further detail at your follow- up appointment, if applicable. Proposed Discharge Date: 07/26/18
--- NOTE | 2018-07-26 10:47 | PCM.DC.SUM ---
<Aye Chatman - Last Filed: 07/26/18 11:05> Discharge Date and Diagnosis Date of Admission: 07/25/18 Date of Discharge: 07/26/18 - Primary Discharge Diagnosis Active and Suspected Problems 1. Severe sepsis secondary to community-acquired pneumonia with associated acute hypoxic respiratory insufficiency 2. Acute kidney injury secondary to #1 3. Hypomagnesia, resolved 4. Normocytic anemia 5. Type 2 diabetes mellitus 6. Hypertension 7. HLD 8. GERD 9. Tobacco dependence - Secondary Discharge Diagnosis Chronic Problems Morbid obesity (Chronic) HTN (hypertension) (Chronic) HLD (hyperlipidemia) (Chronic) GERD (gastroesophageal reflux disease) (Chronic) Diabetes mellitus, type II (Chronic) Hospital Course and Treatment Imaging Results: Diagnostic Data Chest X-Ray 07/25/18 00:37 IMPRESSION: There is a LEFT perihilar mass measuring 7.3 cm. Malignancy cannot be excluded. Lungs otherwise expanded and clear. There is NO pleural effusion or pneumothorax. Normal size heart. Electronically Signed: Dudley Duong MD at 2:15 EDT , Service support , Chest CT 07/25/18 01:37 IMPRESSION: Left upper lobe and lingula pneumonia. Follow-up to ensure resolution is recommended. Electronically Signed: Jessica Brown MD at 2:50 EDT Tel , Service support , Operations: None Procedures: None Summary of Care Provided: The patient is a 62 year old M admitted 07/25/2018 due to cough, upper respiratory symptoms. 1. Acute severe sepsis secondary to community acquired pneumonia with associated acute hypoxic respiratory insufficiency-CT of chest showed left upper lobe and lingula pneumonia. Oxygen stable on room air at discharge. Patient will be discharged with 5 days of oral azithromycin and 10 days of Augmentin at discharge. Respiratory panel negative. Urine for strep and Legionella negative. Blood and sputum cultures pending at discharge. 2. Acute kidney injury-secondary to #1. Resolved. 3. Hypomagnesia-replaced IV. Resolved. 4. Type 2 diabetes mellitus-continue home metformin regimen. 5. Normocytic anemia-stable. 6. Hypertension-stable, continue home regimen. 7. Hyperlipidemia-continue statin. 8. Morbid obesity-encourage diet lifestyle modifications. 9. GERD-continue PPI. 10. Tobacco dependence-encourage smoking cessation. General: Alert, Oriented x3, Cooperative HEENT: Atraumatic, PERRLA, EOMI, Normocephalic Neck: Supple, No JVD, Negative Carotid Bruits Lungs: Diminished, fine crackles Cardiovascular: Regular Rhythm, Normal S1, Normal S2, No murmurs, regular rate Abdomen: Bowel Sounds Present, Soft, Non Tender, Non-Distended, Obese Extremities: No clubbing, No cyanosis, No edema Skin: No rashes, No breakdown Musculoskeletal: No Tenderness to Palpation of Joints or Extremities Neurological: Cranial nerves II-XII grossly intact, Neuro grossly intact Psych/Mental Status: Normal Affect, Appropriate Patient seen exam prior to discharge. Physical assessment as noted above. Patient stable for discharge home with the follow-up her conditions as noted above. This patient was seen by JOSELINE Medley under the supervision of Dr. Vázquez. - Physical Exam Vital Signs Temp Pulse Resp BP Pulse Ox 98.9 F 80 18 97/59 L 96 07/26/18 07:59 07/26/18 07:59 07/26/18 07:59 07/26/18 07:59 07/26/18 07:59 Oxygen Flow Rate (L/min) 2 Oxygen Delivery Method Room Air Weight: 294 lb 5.991 oz Body Mass Index (BMI) 41.0 Intake and Output for Last 24 Hours 07/24/18 07/25/18 07/26/18 23:59 23:59 23:59 Intake Total 4839 / 4839 1965 / 1965 Output Total 300 / 300 500 / 500 Balance 4539 / 4539 1465 / 1465 Microbiology Past 72 Hours 07/25/18 16:23 Gram Stain - Final Sputum, Expectorated/Coughed 07/25/18 05:15 Respiratory Panel (PCR) - Final Mucosa - Nasopharyngeal 07/25/18 07:35 Streptococcus pneumoniae Antigen (M - Final Urine, Clean Catch 07/25/18 07:35 Legionella Antigen - Final Urine, Clean Catch Laboratory Tests Past 24 Hrs 07/25/18 07/25/18 07/26/18 13:20 17:48 05:25 WBC 14.1 H RBC 3.37 L Hgb 8.6 L Hct 28.2 L MCV 83.7 MCH 25.5 L MCHC 30.5 L RDW 15.7 H RDW Differential 46.9 H Plt Count 251 MPV 9.7 Immature Gran % (Auto) 0.400 Neut % (Auto) 74.5 H Lymph % (Auto) 13.4 L [place] % (Auto) 11.5 H Eos % (Auto) 0.1 Baso % (Auto) 0.1 Absolute Neuts (auto) 10.5 H Absolute Lymphs (auto) 1.88 Total Counted Not Reportable Differential Comment SCANNED Sodium Potassium Chloride Carbon Dioxide Anion Gap BUN Creatinine Estim Creat Clear Calc Est GFR (MDRD) Af Amer Est GFR (MDRD) Non-Af BUN/Creatinine Ratio Glucose Lactic Acid 3.1 H 2.3 H Calcium Magnesium 07/26/18 05:25 WBC RBC Hgb Hct MCV MCH MCHC RDW RDW Differential Plt Count MPV Immature Gran % (Auto) Neut % (Auto) Lymph % (Auto) [place] % (Auto) Eos % (Auto) Baso % (Auto) Absolute Neuts (auto) Absolute Lymphs (auto) Total Counted Differential Comment Sodium 137 Potassium 4.2 Chloride 104 Carbon Dioxide 25.0 Anion Gap 8 BUN 21 H Creatinine 0.94 Estim Creat Clear Calc 89.01 Est GFR (MDRD) Af Amer 104 Est GFR (MDRD) Non-Af 86 BUN/Creatinine Ratio 22.2 H Glucose 116 H Lactic Acid Calcium 8.3 L Magnesium 2.3 POC Glucose 07/26/18 07/25/18 07/25/18 07:10 22:30 16:43 POC Glucose 119 H 105 124 H 07/25/18 11:29 POC Glucose 119 H Discharge Diet: No Restrictions Discharge Activity: Return to Normal Activity Call your doctor if you observe: Shortness of breath, Dizziness, Fainting spells, Chest pain Home Medications: Medications to take at Discharge Lansoprazole [Prevacid] 1 tab PO DAILY 07/25/18 Lisinopril [Zestril] 1 tab PO DAILY 07/25/18 Metformin HCl 07/25/18 Simvastatin 40 mg PO DAILY 07/25/18 Amox/Clavulanate Tablet [Augmentin Tablet] 875 mg PO Q12H #20 tab 07/26/18 Azithromycin 500 mg PO DAILY #5 tab 07/26/18 Following Prescrptions Were Given to Patient: Amox/Clavulanate Tablet [Augmentin Tablet] 875 mg PO Q12H #20 tab Azithromycin 500 mg PO DAILY #5 tab Primary Care Physician: NOT,DEFINED [NON-STAFF] - Please follow up with your Primary Care Physician in: 1 Week Disposition: Home Minutes spent on discharge:: 35 Patient Condition:: Stable Medical Necessity - Tobacco Use Smoking Status: Current some day smoker Tobacco Use: Cigars Meaningful Use Info Meaningful Use Diagnoses (Choose all that apply): None applicable <Guido Vázquez F - Last Filed: 07/26/18 12:02> Discharge Date and Diagnosis - Secondary Discharge Diagnosis Chronic Problems Morbid obesity (Chronic) HTN (hypertension) (Chronic) HLD (hyperlipidemia) (Chronic) GERD (gastroesophageal reflux disease) (Chronic) Diabetes mellitus, type II (Chronic) Hospital Course and Treatment Summary of Care Provided: The patient is a 62 year old M [] - Physical Exam Vital Signs Temp Pulse Resp BP Pulse Ox 98.1 F 83 18 105/57 L 98 07/26/18 11:25 07/26/18 11:25 07/26/18 11:25 07/26/18 11:25 07/26/18 11:25 Oxygen Flow Rate (L/min) 2 Oxygen Delivery Method Room Air Weight: 294 lb 5.991 oz Body Mass Index (BMI) 41.0 Intake and Output for Last 24 Hours 07/24/18 07/25/18 07/26/18 23:59 23:59 23:59 Intake Total 4839 / 4839 2586 / 2586 Output Total 300 / 300 500 / 500 Balance 4539 / 4539 2086 / 2086 Microbiology Past 72 Hours 07/25/18 16:23 Gram Stain - Final Sputum, Expectorated/Coughed 07/25/18 05:15 Respiratory Panel (PCR) - Final Mucosa - Nasopharyngeal 07/25/18 07:35 Streptococcus pneumoniae Antigen (M - Final Urine, Clean Catch 07/25/18 07:35 Legionella Antigen - Final Urine, Clean Catch Laboratory Tests Past 24 Hrs 07/25/18 07/25/18 07/26/18 13:20 17:48 05:25 WBC 14.1 H RBC 3.37 L Hgb 8.6 L Hct 28.2 L MCV 83.7 MCH 25.5 L MCHC 30.5 L RDW 15.7 H RDW Differential 46.9 H Plt Count 251 MPV 9.7 Immature Gran % (Auto) 0.400 Neut % (Auto) 74.5 H Lymph % (Auto) 13.4 L [place] % (Auto) 11.5 H Eos % (Auto) 0.1 Baso % (Auto) 0.1 Absolute Neuts (auto) 10.5 H Absolute Lymphs (auto) 1.88 Total Counted Not Reportable Differential Comment SCANNED Sodium Potassium Chloride Carbon Dioxide Anion Gap BUN Creatinine Estim Creat Clear Calc Est GFR (MDRD) Af Amer Est GFR (MDRD) Non-Af BUN/Creatinine Ratio Glucose Lactic Acid 3.1 H 2.3 H Calcium Magnesium 07/26/18 05:25 WBC RBC Hgb Hct MCV MCH MCHC RDW RDW Differential Plt Count MPV Immature Gran % (Auto) Neut % (Auto) Lymph % (Auto) [place] % (Auto) Eos % (Auto) Baso % (Auto) Absolute Neuts (auto) Absolute Lymphs (auto) Total Counted Differential Comment Sodium 137 Potassium 4.2 Chloride 104 Carbon Dioxide 25.0 Anion Gap 8 BUN 21 H Creatinine 0.94 Estim Creat Clear Calc 89.01 Est GFR (MDRD) Af Amer 104 Est GFR (MDRD) Non-Af 86 BUN/Creatinine Ratio 22.2 H Glucose 116 H Lactic Acid Calcium 8.3 L Magnesium 2.3 POC Glucose 07/26/18 07/25/18 07/25/18 07:10 22:30 16:43 POC Glucose 119 H 105 124 H Code Visit Addendum: Dr. Vázquez I personally examined the patient and reviewed the chart. I agree with the above. 8-year-old male with past medical history of morbid obesity, tobacco use, hypertension, hyperlipidemia, GERD who presented the ED on 07/25/2018 with upper respiratory symptoms for 2-1/2 weeks which had improved but then worsened over the last 2-3 days. He developed fevers chills or productive cough. He came into the ER with a heart rate of 119 respiratory rate of [address] chest demonstrated a left upper lobe pneumonia. He was started on Rocephin and azithromycin. He improved significantly over the course of his stay. His lactic acid did rise to 3.1 and subsequently decreased with the fluid bolus. He feels very well today and is wanting to go home. He will be discharged on Augmentin twice daily and azithromycin daily. I discussed with him the necessity of following up with his primary care doctor or returning to the hospital if he were to clinically worsen over the next day or so. Inpatient E&M: 42840 Disch Hosp
[2018-07-26 12:11] LABS: Bedside Glucose 146 mg/dL (70-110)
[2018-07-27 09:50] LABS: Vitamin B12 466 pg/mL (211-911)
== END 2018-07-26 11:50 | disposition home or self-care (01) | DRG 871 ==
LOC: ED 01:33 → PCU 04:09
PROVIDERS: Family Medicine; Admitting Provider Family Medicine; Emergency Provider Emergency Medicine; Referring Provider Family Medicine; Visit Provider Family Medicine
DX: A41.9 Sepsis, unspecified organism (principal); J18.9 Pneumonia, unspecified organism; E87.1 Hypo-osmolality and hyponatremia; Z68.41 Body mass index [BMI] 40.0-44.9, adult; N17.9 Acute kidney failure, unspecified; R65.20 Severe sepsis without septic shock; E66.01 Morbid (severe) obesity due to excess calories; E11.9 Type 2 diabetes mellitus without complications; I10 Essential (primary) hypertension; F17.290 Nicotine dependence, other tobacco product, uncomplicated; D64.9 Anemia, unspecified; E83.42 Hypomagnesemia; E78.5 Hyperlipidemia, unspecified; K21.9 Gastro-esophageal reflux disease without esophagitis; R09.02 Hypoxemia; R06.89 Other abnormalities of breathing
CPT/HCPCS: 36415; 36600; 71046; 71260; 80048; 80053; 82607; 82728; 82746; 82803; 82962; 83036; 83605; 83735; 84484; 85025; 87040; 87070; 87077; 87205; 87449; 87633; 93005; 94640; 94667; 94668; 97802; 99283; 99406; J7030; Q9967; A4216